=== PATIENT | female | born 1975 | race Hispanic/Latino ===

== ENCOUNTER 2016-09-11 20:22 | Emergency (ER) | payer OTHER ==
[~2016-09-11] VITALS: Ht 165.1 cm; Wt 98.4 kg
[2016-09-11 20:41] VITALS: BP 126/82
--- NOTE | 2016-09-11 21:29 | ED HAND/WRIST INJURY COMPLAINT ---
History of Present Illness General Chief Complaint: Laceration Procedure Stated Complaint: "CUT HAND WITH KNIFE" Source: patient, old records Exam Limitations: no limitations Vital Signs & Intake/Output Vital Signs & Intake/Output Vital Signs Date Time Temp Pulse Resp B/P B/P Pulse O2 O2 Flow FiO2 Mean Ox Delivery Rate 09/12 2139 97.7 09/11 2040 97.7 80 18 126/82 100 Room Air ED Intake and Output 09/12 0000 09/11 1200 Intake Total 0 Output Total Balance 0 Intake, Oral 0 Patient 217 lb Weight Weight Reported by Patient Measurement Method Allergies Coded Allergies: shellfish derived (HIVES, ITCHY 09/11/16) Triage Note: PT TO ED C/O LACERATION FROM KITCHEN KNIFE TO BASE OF LEFT THUMB 30 MINS 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 PT EVAL BY DR MARIEE IN TRIAGE Triage Nurses Notes Reviewed? yes Occurred: just prior to arrival Duration: hour(s): (1), constant Timing: recent history Injury Environment: home Severity: mild Severity Numbers: 3 Pain/Injury Location: Left: Hand. Context: laceration Method of Injury: laceration No Modifying Factors: none Associated Symptoms: none : No Patient currently breastfeeds: No HPI: 41-year-old female presents to the ER for evaluation status post sustaining a laceration to the palmar aspect of her left hand just prior to arrival when she accidentally cut it with a knife. Her last tetanus is unknown she is now presents complaining of mild 3 out of 10 aching nonradiating pain. No difficulty with range motion of the finger no numbness no tingling. No other modifying factors or associated symptoms otherwise. she is right hand dominant (GRICELDA HAY) Past History Travel History Traveled to [place] past 21 day No Medical History Any Pertinent Medical History? none Surgical History Surgical History: none Psychosocial History What is your primary language [place] Tobacco Use: Never used ETOH Use: occasional use Illicit Drug Use: denies illicit drug use Family History Hx Contributory? No (GRICELDA HAY) Review of Systems Review of Systems Constitutional: Reports: see HPI. All Other Systems: Reviewed and Negative Comments Review of systems: See HPI, All other systems negative. Constitutional, no chills no fever, no malaise HEENT: No visual changes no sore throat no congestion Cardiovascular: No chest pain , no palpitation Skin: no rashes, no change in skin Respiratory: No dyspnea no cough no sputum GI: No nausea no vomiting, no diarrhea, Muscle skeletal: No joint pain, no joint swelling, no back pain, no neck pain, Neurologic: No numbness no headache Psych: No stress Heme/endocrine: No bruising Immunology: No lymphadenopathy (GRICELDA HAY) Physical Exam Physical Exam General Appearance: well developed/nourished, no apparent distress, alert, awake Hand Left: normal range of motion, lacerations Hand Right: normal inspection Comments: Well-developed well-nourished patient in no apparent distress. HEENT: Atraumatic, extraocular motion intact Neck: Supple, FROM Back: FROM Cardiovascular: Regular rate and rhythms no murmurs rubs or gallops, Respiratory: Chest nontender.There were no bony deformities, no asymmetry. No respiratory distress. Patient speaking in full complete sentences. Breath sounds clear to auscultation bilaterally: NO W/R/R Shoulder: Atraumatic/Stable. FROM . Elbow: Atraumatic/stable. FROM. No laxity Upper arm/Forearm: Atraumatic. Nontender. No edema, 5 out of 5 director biology strength noted to bilateral upper extremities Hand/Wrist: 1 cm superficial linear laceration noted to the palmar aspect of the left hand overlying the distal left first metacarpal, no visualized foreign body no deep tendon injury, capillary refills within normal limits. FROM Pulses: Normal/equal radial pulses bilaterally. Brisk cap refill Lower Extremities: full range of motion Neuro: awake, alert, and oriented to person, place and time. There were no obvious focal neurologic abnormalities. Skin: Warm & dry;No appreciable rash on exposed skin Psych: Mood affect normal, normal memory normal judgment. Diagram Hands Front 1) laceration as described (GRICELDA HAY) Progress Differential Diagnosis: sprain, fx, sprain, contusion, laceration Plan of Care: After verbal consent was obtained the wound was thoroughly irrigated with normal saline Betadine peroxide the wound was anesthetized with lidocaine 1% no epi sutures 3 3-0 were administered by myself patient tolerated procedure well without complications. Tetanus IM was administered Discussed with her that the possibility of foreign body tendon injury not seen on examination still exist as return anytime sooner with any concerns or signs of infection they feel comfortable plan (GRICELDA HAY) Departure Departure Time of Disposition: 2158 Disposition: HOME OR SELF CARE Condition: Stable Clinical Impression Primary Impression: Hand laceration Referrals: DAIN PICHARDO MD (PCP/Family) Additional Instructions: RETURN IN 7 DAYS FOR SUTURE REMOVAL. THE POSSIBILITY OF A FOREIGN BODY OR TENDON INJURY NOT SEEN ON EXAM EXISTS. RETURN TO THE ER OR FOLLOW UP WITH YOUR PMD AT ANYTIME SOONER WITH ANY CONCERNS OR SIGNS OF INFECTION. KEEP AREA CLEAN AND COVERED. BACITRACIN DAILY Departure Forms: Customer Survey General Discharge Information (GRICELDA HAY) PA/MECHATRONICS ENGINEER Co-Sign Statement Statement: ED Attending supervision documentation- x] I saw and evaluated the patient. I have also reviewed all the pertinent lab results and diagnostic results. I agree with the findings and the plan of care as documented in the PA's/MECHATRONICS ENGINEER's documentation. [] I have reviewed the ED Record and agree with the PA's/MECHATRONICS ENGINEER's documentation. [] Additions or exceptions (if any) to the PAs/MECHATRONICS ENGINEER's note and plan are summarized below: [] (KODI BOWDEN,GAGAN Leo) Procedures Laceration/Wound Repair Laceration/Wound Repair: Wound Location: l hand Wound's Depth, Shape: linear, superficial Wound Length (cm): 1 Wound Explored: clean, no foreign body removed, irrigated extensively Irrigated w/ Saline (ccs): 200 Betadine Prep? Yes Anesthesia: 1% lidocaine Wound Repaired With: sutures Suture Size/Type: 3:0 Number of Sutures: 3 Layer Closure? No Sterile Dressing Applied: Yes Date of Last Tetanus: 09/11/16 Tetanus Status: not up to date (GRICELDA HAY)
== END 2016-09-11 22:06 ==
LOC: ERH 20:22
DX: S61.412A Laceration without foreign body of left hand, initial encounter (principal); W26.0XXA Contact with knife, initial encounter; Y93.9 Activity, unspecified; Y92.009 Unspecified place in unspecified non-institutional (private) residence as the place of occurrence of the external cause
CPT/HCPCS: 90471; 90714